=== PATIENT | male | born 1960 | race Caucasian/White ===

== ENCOUNTER → 2017-10-06 07:43 | Outpatient (CLI) | payer OTHER, SELFPAY ==
--- NOTE | 2017-10-06 07:47 | CT_ITS ---
STUDY: CT PARANASAL SINUSES WITH CONTRAST REASON FOR EXAM: Male, 57 years old. Benign right palatal cyst x years, biopsy in 2013. Prior repair of deviated septum. Chronic sinus congestion and allergies. RADIATION DOSAGE (If Supplied By Facility): CTDIvol = ( 29.38 ) mGy, DLP = ( 591.53 ) mGycm TECHNIQUE: The patient was scanned in a multi-detector CT scanner. High resolution transaxial imaging was performed following the intravenous administration of 100mL ml of Isovue 300 contrast material. Sagittal and coronal images were reconstructed. Individualized dose optimization techniques were used for this CT. COMPARISON: None. FINDINGS: FRONTAL SINUSES: Normal development and aeration of the bilateral frontal sinuses without mucosal inflammatory disease. ETHMOIDAL SINUSES: Normal development and aeration of the bilateral ethmoidal air cells without mucosal inflammatory disease. MAXILLARY SINUSES: Minimal mucosal thickening in the maxillary sinuses. SPHENOIDAL SINUSES: Normal aeration of the bilateral sphenoid sinuses and there is no mucosal inflammatory disease. OMU: Obstructed right maxillary ostium and right infundibulum due to mucosal thickening. Patent left ostiomeatal unit. MIDDLE TURBINATES: Nonopacified right conchal bullosa. Normal left middle turbinate. INFERIOR TURBINATES: Partial left turbinectomy defect. Normal right inferior turbinate. NASAL SEPTUM: Mild left nasal septal deviation despite prior history of septoplasty. Normal anterior cranial fossa, sun danny and cribriform plate. Normal bilateral orbital contents. Normal nasopharynx without adenoidal pad hypertrophy, or a posterior nasopharyngeal retention cyst. 1.7 x 1.4 x 1.2 cm soft tissue density hanging around the roof of the right side of the oral cavity. This is most likely the known benign right palatal cyst. CT/Sinus/Facial Bone WITH Contras IMPRESSION: 1. Minimal mucosal thickening in both maxillary sinuses. 2. The remaining paranasal sinuses are normal. 3. Obstructed right ostiomeatal unit due to mucosal thickening at the ostium and along the right infundibulum. 4. Patent left ostiomeatal unit. 5. Nonopacified right conchal bullosa. 6. Mild left-sided nasal septal deviation despite prior history of septoplasty. 7. 1.7 x 1.4 x 1.2 cm soft tissue density hanging down the right side of the roof of the oral cavity. This most likely corresponds to the known benign right palatal cyst. Interval changes are unknown since no prior films are available for comparison. Electronically Signed: Stoney Diggs MD at 10:56 EDT , Service support ,
== END ==
PROVIDERS: Family Provider Family Medicine; PCP Family Medicine
DX: K13.79 Other lesions of oral mucosa (principal)
CPT/HCPCS: 70487; Q9967

== ENCOUNTER → 2018-02-24 10:20 | Outpatient (CLI) | payer OTHER, SELFPAY ==
[2018-02-23 08:19] LABS: BUN 17 mg/dL (7-18); Creatinine, Serum 1.24 mg/dL (0.70-1.30); EST Glomerular Filtration Rate 64 mL/min (>60); Est Glom Filt Rate - Afr Amer 78 mL/min (>60)
[2018-02-25 08:12] LABS: CREATININE FINGERSTICK 0.65 mg/dL (0.70-1.30)
== END ==
PROVIDERS: Family Provider Family Medicine; PCP Family Medicine
DX: K13.79 Other lesions of oral mucosa (principal)
CPT/HCPCS: 36415; 70486; 70491; 76377; 82565; 84520; Q9967

== ENCOUNTER → 2018-12-10 09:52 | Outpatient (CLI) | payer OTHER, SELFPAY ==
[2017-04-05 16:54] VITALS: BMI 28.8
[2018-12-10 12:40] LABS: Absolute Lymphocyte Count 1.54 X10^3/ul (0.83-4.51); Basophil# 0.03 X10^3/uL; Basophil% 0.7 % (0-1); Eosinophil# 0.35 X10^3/uL; Hematocrit 39.4 % (40-54); Hemoglobin 13.5 g/dl (13.0-16.5); Lymphocyte # 1.54 X10^3/ul (4.0); Lymphocyte % 35.4 % (19-41); Mean Corp Hgb Conc 34.3 g/gl (32-36); Mean Corpuscular Hgb 29.7 pg (27.0-32.0); Mean Corpuscular Volume 86.6 fL (80-94); Mean Platelet Vol. 12.1 fl (6.2-12.0); Monocyte# 0.46 X10^3/uL; Monocyte% 10.6 % (0-10); Neutrophil # 1.97 X10^3/uL (2.7-7.7); Neutrophil % 45.3 % (47-70); Platelet Count 209 K/mm3 (150-450); RBC Distribution Width CV 13.9 % (11.6-14.6); Red Blood Count 4.55 M/mm3 (4.6-6.2); White Blood Count 4.4 K/mm3 (4.4-11.0)
[2018-12-10 12:41] LABS: POSITIVE COUNT NO; POSITIVE DIFFERENTIAL NO; POSITIVE MORPHOLOGY NO
[2018-12-10 13:47] LABS: ALB/GLOB Ratio 1.1 RATIO (0.9-2.4); AST(SGOT) 32 U/L (15-37); Alanine Aminotransfer ALT/SGPT 32 U/L (16-61); Albumin, Serum 3.7 g/dL (3.2-5.0); Alkaline Phosphatase 56 U/L (45-117); Anion Gap 8 (5-15); BUN 12 mg/dL (7-18); BUN/Creat Ratio 12.6 RATIO (10-20); Calcium,Total 8.5 mg/dL (8.5-10.1); Chloride 105 mmol/L (98-107); Cholesterol 181 mg/dL (200); Creatinine, Serum 0.96 mg/dL (0.70-1.30); EST Glomerular Filtration Rate 86 mL/min (>60); Est Glom Filt Rate - Afr Amer 105 mL/min (>60); Globulin 3.5 g/dL (2.2-4.2); Glucose 99 mg/dL (74-106); High Density Lipoprotein 60 mg/dL; PSA,Total - Annual Screen 0.94 ng/mL (0.00-4.00); Potassium 4.1 mmol/L (3.5-5.1); Protein, Total 7.2 g/dL (6.4-8.2); Sodium Level 138 mmol/L (136-145); Triglycerides 98 mg/dL; Very Low Density Lipoprotein 20 mg/dL (5-40)
== END ==
PROVIDERS: Family Provider Family Medicine; PCP Family Medicine; Visit Provider Family Medicine
DX: Z00.00 Encounter for general adult medical examination without abnormal findings (principal); Z12.5 Encounter for screening for malignant neoplasm of prostate
CPT/HCPCS: 36415; 80053; 80061; 84153; 85025; G0103

== ENCOUNTER → 2019-09-24 14:22 | Outpatient (CLI) | payer OTHER, SELFPAY ==
[2017-04-05 16:54] VITALS: BMI 28.8
[2019-09-24 16:19] LABS: Rubella IgG > 500.0 IU/mL
[2019-09-27 20:04] LABS: Mumps Antibody,IgG 35.8 AU/mL (Immune >10.9); Rubeola IgG Ab < 13.5 AU/mL (Immune >16.4)
== END ==
PROVIDERS: PCP Family Medicine; Visit Provider Family Medicine
DX: Z92.29 Personal history of other drug therapy (principal)
CPT/HCPCS: 36415; 86735; 86762; 86765

== ENCOUNTER → 2020-06-21 10:27 | Outpatient (CLI) | payer OTHER, SELFPAY ==
[2017-04-05 16:54] VITALS: BMI 28.8
== END ==
PROVIDERS: PCP Family Medicine; Visit Provider Family Medicine
DX: Z20.828 Contact with and (suspected) exposure to other viral communicable diseases (principal)
CPT/HCPCS: 36415; 86769

== ENCOUNTER → 2020-08-19 09:15 | Outpatient (CLI) | payer OTHER, SELFPAY ==
--- NOTE | 2020-08-19 09:23 | US_ITS ---
EXAM: US ABDOMEN LIMITED, RIGHT UPPER QUADRANT CLINICAL INDICATION: RUQ PAIN TECHNIQUE: Real-time ultrasound of the right upper quadrant with image documentation. This report was created using [employer] report generation technology. COMPARISON: None. FINDINGS: LIVER: Unremarkable. There is normal echotexture. No focal hepatic lesion. No intrahepatic biliary ductal dilation. GALLBLADDER: Small cholesterol polyp of the gallbladder measures 3 mm. No gallstones. No gallbladder wall thickening is demonstrated. No pericholecystic fluid. Negative sonographic Vincent''s sign. COMMON BILE DUCT: Unremarkable as visualized. The proximal common bile duct is within normal limits for the patient''s age. PANCREAS: Unremarkable as visualized. No focal abnormality is demonstrated in the pancreas. No pancreatic ductal dilatation. RIGHT KIDNEY: Unremarkable. There is no hydronephrosis. No shadowing calculus. No focal lesion or perinephric collection is demonstrated. US/Abdomen Limited IMPRESSION: No acute findings in the right upper quadrant. Electronically Signed: Abimael Lock MD ([place]) at 15:40 EST , Service support ,
== END ==
PROVIDERS: PCP Family Medicine; Referring Provider Family Medicine; Visit Provider Family Medicine
DX: R10.11 Right upper quadrant pain (principal)
CPT/HCPCS: 76705

== ENCOUNTER → 2022-02-06 | Outpatient (CLI) | payer BC, SELFPAY ==
[2022-02-06 09:58] LABS: Absolute Lymphocyte Count 0.89 X10^3/uL (0.83-4.51); Absolute Neutrophil Count 5.9 X10^3/uL (2.0-7.7); Basophil# 0.04 X10^3/uL; Basophil% 0.5 % (0-1); Eosinophil# 0.36 X10^3/uL; Eosinophils% 4.5 % (0-5); Hematocrit 39.3 % (40-54); Hemoglobin 13.5 g/dL (13.0-16.5); Lymphocyte # 0.89 X10^3/ul (0.83-4.51); Lymphocyte % 11.2 % (19-41); Mean Corp Hgb Conc 34.4 g/dL (32-36); Mean Corpuscular Hgb 30.5 pg (27.0-32.0); Mean Corpuscular Volume 88.7 fL (80-94); Mean Platelet Vol. 11.2 fl (6.2-12.0); Monocyte# 0.81 X10^3/uL; Monocyte% 10.2 % (0-10); NRBC Flagged by Analyzer 0 % (0-5); Neutrophil # 5.85 X10^3/uL (2.7-7.7); Neutrophil % 73.3 % (47-70); Platelet Count 197 K/mm3 (150-450); RBC Distribution Width CV 12.8 % (11.6-14.6); Red Blood Count 4.43 M/mm3 (4.6-6.2)
[2022-02-06 10:16] LABS: Vitamin D,25 Hydroxy 45.2 ng/mL
[2022-02-06 10:17] LABS: ALB/GLOB Ratio 1.2 RATIO (0.9-2.4); AST(SGOT) 28 U/L (15-37); Alanine Aminotransfer ALT/SGPT 25 U/L (16-61); Albumin, Serum 3.7 g/dL (3.2-5.0); Alkaline Phosphatase 52 U/L (45-117); Anion Gap 6 (5-15); BUN 8 mg/dL (7-18); BUN/Creat Ratio 8.7 RATIO (10-20); Calcium,Total 8.7 mg/dL (8.5-10.1); Chloride 102 mmol/L (98-107); Cholesterol 165 mg/dL (200); Creatinine, Serum 0.92 mg/dL (0.70-1.30); EST Glomerular Filtration Rate 90 mL/min (>60); Est Glom Filt Rate - Afr Amer 109 mL/min (>60); Globulin 3.2 g/dL (2.2-4.2); Glucose 100 mg/dL (74-106); High Density Lipoprotein 61 mg/dL; PSA,Total - Annual Screen 1.08 ng/mL (0.00-4.00); Potassium 3.9 mmol/L (3.5-5.1); Protein, Total 6.9 g/dL (6.4-8.2); Sodium Level 136 mmol/L (136-145); Triglycerides 61 mg/dL; Very Low Density Lipoprotein 12 mg/dL (5-40)
== END | disposition home or self-care (01) ==
LOC: MTLAB 07:31
PROVIDERS: PCP Family Medicine; Referring Provider Family Medicine; Visit Provider Family Medicine
DX: Z00.00 Encounter for general adult medical examination without abnormal findings (principal); Z12.5 Encounter for screening for malignant neoplasm of prostate; E55.9 Vitamin D deficiency, unspecified
CPT/HCPCS: 36415; 80053; 80061; 82306; 84153; 85025; G0103

== ENCOUNTER → 2022-07-02 | Outpatient (CLI) | payer BC, SELFPAY ==
--- NOTE | 2022-07-02 09:58 | NM_ITS ---
CLINICAL: 62-year-old male with history of right upper quadrant abdominal pain. RADIONUCLIDE HEPATOBILIARY SCINTIGRAPHY COMPARISON: None available FINDINGS: Following the intravenous administration of 5.2 mCi of 99m Tc Mebrofenin, hepatobiliary images reveal: 1. Relatively prompt and homogeneous radiopharmaceutical concentration is noted by a normal sized liver. No parenchymal defects are identified. 2. Gallbladder activity is identified at 10 minutes post radiopharmaceutical administration. 3. Small intestinal tract is observed at 30-45 minutes following tracer injection. 4. Washout of the radiopharmaceutical by the hepatic parenchyma appears qualitatively normal. Cholecystokinin (0.02 ug/kg) was administered intravenously over a 30-minute period. The post CCK gallbladder ejection fraction calculated at 21 minutes following Cholecystokinin administration was noted to be 97.0 % (normal greater than 35%). During 30 minutes of post CCK imaging, there is no scintigraphic evidence of reflux of the radiotracer into the common hepatic duct or refilling of the gallbladder. NM/Hepatobilliary Img w/Pharm Int IMPRESSION: 1. NORMAL 99m Tc Mebrofenin hepatobiliary imaging examination with Cholecystokinin. A. A gallbladder ejection fraction calculated to be greater than 35% following the administration of Cholecystokinin makes the probability of functional hepatobiliary disease (gallbladder and/or sphincter of Oddi dyskinesia) and/or organic hepatobiliary disease (chronic acalculous cholecystitis and/or cystic duct syndrome) to be low. (Paco Kauffman et al, Journal of Nuclear Medicine 32:1695, 1991). Electronically Signed: Chemo Harrison, at 23:34 EST ,
== END | disposition home or self-care (01) ==
LOC: NM 09:52
PROVIDERS: PCP Family Medicine; Visit Provider Family Medicine
DX: R10.11 Right upper quadrant pain (principal)
CPT/HCPCS: 78227; A9537; J2805

== ENCOUNTER 2022-09-01 06:19 | Emergency (ER) | payer BC, SELFPAY ==
[2022-09-01 06:19] VITALS: BP 109/71; PULSE 77; RESP 17; TEMP 36.8; O2SAT 94; BMI 26.1
--- NOTE | 2022-09-01 06:29 | CT_ITS ---
EXAM: CT HEAD WITHOUT INTRAVENOUS CONTRAST CLINICAL INDICATION: syncope, fall TECHNIQUE: Multiple axial images were obtained of the head without intravenous contrast. This CT exam was performed using one or more of the following dose reduction techniques: automated exposure control, adjustment of the mA and/or kV according to patient size, and/or use of iterative reconstruction technique. This report was created using [employer] report generation technology. RADIATION DOSE: CTDIvol = 44.99 mGy, DLP = 914.22 mGy-cm. COMPARISON: Soft tissue neck CT February 24, 2018. There has been postoperative change since that time. FINDINGS: BRAIN AND EXTRA-AXIAL SPACES: Unremarkable. No intra- or extra-axial hemorrhage. No evidence of acute infarct. No intracranial mass or mass effect. There is preservation of the reveles/white matter interface. Posterior fossa structures are unremarkable. Ventricles are appropriate for age. No hydrocephalus. Basal cisterns are patent. BONES/JOINTS: See below. SINUSES: The central and right heart palate have been resected with a residual bone at the right alveolar ridge, and resection of a segment of the inferior wall of the right maxillary sinus of roughly 1.5 cm transverse. Mucosal retention cyst in the left maxillary sinus. Mild mucosal thickening in frontoethmoidal recesses. Angulated nasal bones with old fractures. MASTOID AIR CELLS: Unremarkable. Clear. AUDITORY SYSTEM: Well-aerated middle ears and mastoids sinuses. ORBITS: Visualized globes, extraocular muscles, optic nerves and retrobulbar fat appear unremarkable. CT/Brain/Head without Contrast IMPRESSION: No acute intracranial abnormality. Postoperative changes of the right face. Electronically Signed: Chelsea Goldberg MD at 7:36 EST ,
--- NOTE | 2022-09-01 06:30 | EKG12_ITS ---
Test Reason : SYNCOPE Blood Pressure : / mmHG Vent. Rate : 077 BPM Atrial Rate : 077 BPM P-R Int : 164 ms QRS Dur : 078 ms QT Int : 358 ms P-R-T Axes : 050 056 055 degrees QTc Int : 405 ms Normal sinus rhythm Septal infarct , age undetermined Abnormal ECG Confirmed by DONOVAN MCBRIDE, SANA ([id number]), deputy editor in chief PAUL KEITH ([id number]) on 09/02/2022 1:34:46 PM Referred By: MELVIN Confirmed By:SANA MAN MD
--- NOTE | 2022-09-01 06:33 | EX.ED.DYSGE1 ---
HPI History of Present Illness Chief Complaint: Syncope Informant: patient and spouse/S.O. Onset/Context/Timing Onset: Today Narrative Narrative: Patient presents with for evaluation of syncope. Patient reportedly got up to go to the restroom. He went to urinate. He states he remembers feeling lightheaded and leaning his head against the wall. He reportedly passed out and fell to the ground. states that he had a blank stare on his face. He came around quickly and tried to sit up but was dizzy and had to lie back down. He denies having chest pain or palpitations. states that he did not have a bowel movement yesterday which is abnormal for him, but he did eat and drink normally. He has not recently been sick. He has been on no new medications. [facility] Medical History Asthma HERBIE (obstructive sleep apnea) Home Medications fexofenadine-pseudoephedrine ER 180 mg-240 mg tablet,ext.release 24 hr (Angeles-D 24 Hour) 1 ea PO DAILY 10/21/16 [History Last Taken Unknown] albuterol sulfate 2.5 mg/3 mL (0.083 %) solution for nebulization 2.5 mg (3 mL) inhalation Q2H PRN PRN Dyspnea, wheezing ##1 04/06/17 [Rx Last Taken Unknown] albuterol sulfate 90 mcg/actuation aerosol inhaler (Ventolin HFA) 1 - 2 puff inhalation Q4H PRN PRN Asthma ##1 04/06/17 [Rx Last Taken Unknown] fluticasone propionate 50 mcg/actuation nasal spray,suspension 1 spray BID ##1 04/06/17 [Rx Last Taken Unknown] ipratropium bromide 17 mcg/actuation HFA aerosol inhaler (Atrovent HFA) 1 puff inhalation 4X/DAY ##1 04/06/17 [Rx Last Taken Unknown] montelukast 10 mg tablet 10 mg PO DAILY@1700 #30 tabs 04/06/17 [Rx Last Taken Unknown] nebulizers (LC Plus misc) ##1 04/06/17 [Rx Last Taken Unknown] Allergy/AdvReac Type Severity Reaction Status Date / Time cat dander Allergy Unknown Verified 09/01/22 06:24 pollen extracts Allergy Unknown Verified 09/01/22 06:24 Social History Smoking Status: Never smoker ROS ROS ED Constitutional Constitutional ED: Denies chills or fever(s) Eyes Eyes: Denies change in vision or discharge from eye(s) ENT ENT ED: Denies discharge from eye(s), rhinorrhea or sore throat Cardiovascular Cardiovascular: Denies chest pain or palpitations Respiratory/Chest Respiratory/Chest: Denies cough or dyspnea Gastrointestinal Gastrointestinal: Denies abdominal pain, diarrhea, nausea or vomiting Genitourinary Genitourinary ED: Denies dysuria Musculoskeletal Musculoskeletal: Denies back pain or extremity pain Integumentary Denies Abrasions or rash Neurologic Neurologic: Denies headache(s) or weakness Psychiatric Psychiatric: Denies anxiety or depression Endocrine Endocrinology: Denies polydipsia or polyuria Allergic/Immunologic Allergic/Immunologic ED: Denies lip swelling or urticaria EXAM Physical Exam Const Vital Signs: 09/01/22 06:19 09/01/22 06:22 09/01/22 07:33 Temperature 98.3 F Temperature Source Oral Pulse Rate 77 75 Respiratory Rate 17 16 Respiratory Pattern Normal Blood Pressure 109/71 110/70 Blood Pressure Mean 83 83 Pulse Ox 94 96 Oxygen Delivery Method Room Air Room Air Positive well nourished and well developed General Appearance ED: well developed HEENT Reports normocephalic and head/scalp atraumatic Eyes PERRL and EOMs intact bilaterally Neck supple Chest Wall inspection of chest normal and palpation of chest normal Resp normal respiratory effort and clear to auscultation bilaterally Cardio regular rate and regular rhythm GI non-tender Auscultation: hypoactive bowel sounds Palpation: soft Extremity normal to inspection Neuro oriented x3 Neuro Narrative: Lives in bed with eyes closed but answers questions appropriately. No focal neuro findings. 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 EKG obtained to evaluate for cardiac arrhythmia/ischemia. Lab work obtained to evaluate for leukocytosis, anemia, electrolyte derangement. Blood glucose on arrival is 138. Portable chest x-ray obtained to evaluate for cardiac size and any acute lung pathology. Head CT obtained given the patient's fall and syncopal episode. Lab Data Attestation: I reviewed the patient's lab results. Labs: Laboratory Results - last 24 hr 09/01/22 09/01/22 09/01/22 06:22 06:22 06:53 WBC 6.5 RBC 4.70 Hgb 14.2 Hct 41.4 MCV 88.1 MCH 30.2 MCHC 34.3 RDW Std Deviation 39.1 RDW Coeff of Dinora 12.1 Plt Count 193 MPV 10.9 Immature Gran % (Auto) 0.200 Neut % (Auto) 86.6 H Lymph % (Auto) 6.6 L [place] % (Auto) 5.7 Eos % (Auto) 0.6 Baso % (Auto) 0.3 Absolute Neuts (auto) 5.6 Absolute Lymphs (auto) 0.43 L Nucleated RBC % 0 Differential Comment SCANNED Sodium 136 Potassium 3.7 Chloride 102 Carbon Dioxide 28.0 Anion Gap 6 BUN 14 Creatinine 1.03 Estim Creat Clear Calc 88.67 Est GFR (MDRD) Af Amer 95 Est GFR (MDRD) Non-Af 78 BUN/Creatinine Ratio 13.6 Glucose 146 H Calcium 8.5 Total Bilirubin 0.70 Direct Bilirubin 0.19 AST 27 ALT 25 Alkaline Phosphatase 50 Troponin I High Sens 5 Total Protein 6.7 Albumin 3.5 Globulin 3.2 POC Glucose 138 H Radiography Chest X-Ray - ED: 1 View, Read by ED Physician, Normal, Heart, Lungs and Mediastinum Diagnostic Testing: Clinical Impression(s) from Imaging Studies Brain CT 09/01/22 06:29 IMPRESSION: No acute intracranial abnormality. Postoperative changes of the right face. Electronically Signed: Chelsea Goldberg MD at 7:36 EST , Chest X-Ray 09/01/22 07:10 IMPRESSION: Stable chest. Mild right basilar scarring. Electronically Signed: Chelsea Goldberg MD at 7:41 EST , EKG Initial EKG: Attestation: I personally reviewed and interpreted this EKG as follows: Interpretation: Sinus Rhythm (Sinus at 77 with no acute ischemia.) Treatment and Re-Evaluation Narrative: CBC and chemistry studies unremarkable. LFTs unremarkable. EKG reveals no acute ischemia. He has had no arrhythmias noted on tobacco acreage measurer. Chest x-ray per my interpretation reveals no acute findings. Radiology interpretation is reviewed and agrees. CT scan of the head reveals no acute abnormality. On repeat evaluation patient is resting comfortably. He is tolerating p.o. fluids. He will have a repeat troponin drawn in approximately 40 minutes. This be signed out to oncoming physician. If normal patient can be discharged to home. He began feeling lightheaded and dizzy with urination. I believe he had a vasovagal episode. He has had no chest pain or palpitations. Discharge Plan Triage Chief Complaint: Syncope ED Provider: Bernice Hurtado Dx/Rx/DC Orders Clinical Impression: Syncope, vasovagal Instructions: ED Fainting, Vagal Reaction Prescriptions: No Action fexofenadine-pseudoephedrine [Angeles-D 24 Hour] 1 EACH tablet extended release 24 hr 1 ea PO DAILY Label Comments: seasonal allergies montelukast 10 MG tablet 10 mg PO DAILY@1700 Qty: 30 0RF fluticasone propionate 1 SPRAY spray,suspension 1 spray NASAL BID Qty: 1 0RF albuterol sulfate 2.5 MG/3 ML solution for nebulization 2.5 mg inhalation Q2H PRN PRN (Reason: Dyspnea, wheezing) Qty: 1 0RF Atrovent HFA 12.9 GM inhaler 1 puff inhalation 4X/DAY Qty: 1 0RF albuterol sulfate [Ventolin HFA] 1 INHALER inhaler 1 - 2 puff inhalation Q4H PRN PRN (Reason: Asthma) Qty: 1 0RF (DME) nebulizers [LC Plus] 1 EACH Each 1 ea miscellaneous UD Qty: 1 0RF Rx Instructions: Nebulizer machine and kit x 1 Re: Asthma exacerbation Use as directed per aerosols rx. Primary Care Provider: Jelani Lucero Referrals: Jelani Lucero DO [Primary Care Provider] - 5-7 Days Disposition Disposition: Home, Self Care
[2022-09-01 06:39] LABS: Absolute Lymphocyte Count 0.43 X10^3/uL (0.83-4.51); Absolute Neutrophil Count 5.6 X10^3/uL (2.0-7.7); Basophil# 0.02 X10^3/uL; Basophil% 0.3 % (0-1); Eosinophil# 0.04 X10^3/uL; Eosinophils% 0.6 % (0-5); Hematocrit 41.4 % (40-54); Hemoglobin 14.2 g/dL (13.0-16.5); Lymphocyte # 0.43 X10^3/ul (0.83-4.51); Lymphocyte % 6.6 % (19-41); Mean Corp Hgb Conc 34.3 g/dL (32-36); Mean Corpuscular Hgb 30.2 pg (27.0-32.0); Mean Corpuscular Volume 88.1 fL (80-94); Mean Platelet Vol. 10.9 fl (6.2-12.0); Monocyte# 0.37 X10^3/uL; Monocyte% 5.7 % (0-10); NRBC Flagged by Analyzer 0 % (0-5); Neutrophil # 5.62 X10^3/uL (2.7-7.7); Neutrophil % 86.6 % (47-70); POSITIVE DIFFERENTIAL YES; Platelet Count 193 K/mm3 (150-450); RBC Distribution Width CV 12.1 % (11.6-14.6); RBC Distribution Width SD 39.1 fl (35.1-43.9); White Blood Count 6.5 K/mm3 (4.4-11.0)
[2022-09-01 06:43] LABS: Differential Indicated SCAN CRITERIA MET
[2022-09-01] MEDS: 0.9% Normal Saline 1,000 ML 1000 ML IV (06:43)
[2022-09-01 06:56] LABS: AST(SGOT) 27 U/L (15-37); Alanine Aminotransfer ALT/SGPT 25 U/L (16-61); Albumin, Serum 3.5 g/dL (3.2-5.0); Alkaline Phosphatase 50 U/L (45-117); Anion Gap 6 (5-15); BUN 14 mg/dL (7-18); BUN/Creat Ratio 13.6 RATIO (10-20); Bilirubin, Direct 0.19 mg/dL (0.00-0.30); Calcium,Total 8.5 mg/dL (8.5-10.1); Chloride 102 mmol/L (98-107); Creatinine, Serum 1.03 mg/dL (0.70-1.30); EST Glomerular Filtration Rate 78 mL/min (>60); Est Glom Filt Rate - Afr Amer 95 mL/min (>60); Estimated Creatinine Clearance 88.67 ml/min; Globulin 3.2 g/dL (2.2-4.2); Glucose 146 mg/dL (74-106); Potassium 3.7 mmol/L (3.5-5.1); Protein, Total 6.7 g/dL (6.4-8.2); Sodium Level 136 mmol/L (136-145); Troponin-I HS (w/2H Reflex) 5 pg/mL (3.0-78.0)
[2022-09-01 07:04] LABS: Differential Comment SCANNED
--- NOTE | 2022-09-01 07:10 | RAD_ITS ---
EXAM: XR CHEST, 1 VIEW CLINICAL INDICATION: syncope TECHNIQUE: Frontal view of the chest. This report was created using [employer] report generation technology. COMPARISON: April 05, 2017. FINDINGS: LUNGS AND PLEURAL SPACES: Mild linear presumed scarring in the right lung base again noted. Mildly increased lucency in the suprahilar regions which is 4 COPD. No convincing infiltrates or effusions. No pneumothorax. HEART: Unremarkable. Cardiac silhouette not enlarged. MEDIASTINUM: No mediastinal widening. BONES/JOINTS: Unremarkable. SOFT TISSUES: Unremarkable. RAD/Chest 1 View (Portable) IMPRESSION: Stable chest. Mild right basilar scarring. Electronically Signed: Chelsea Goldberg MD at 7:41 EST ,
[2022-09-01 07:15] LABS: Bedside Glucose 138 mg/dL (74-106)
[2022-09-01 07:33] VITALS: BP 110/70; PULSE 75; RESP 16; O2SAT 96
[2022-09-01 08:00] VITALS: BP 106/64; PULSE 74; RESP 21; O2SAT 96
[2022-09-01 08:36] LABS: Reflex Troponin-HS? (from REC) Y
[2022-09-01 09:34] LABS: Troponin-I HS 5 pg/mL (3.0-78.0)
[2022-09-01 10:03] VITALS: BP 111/62; PULSE 74
== END 2022-09-01 10:18 | disposition home or self-care (01) ==
PROVIDERS: Emergency Provider Emergency Medicine; PCP Family Medicine; Visit Provider Emergency Medicine
DX: R55 Syncope and collapse (principal); J45.909 Unspecified asthma, uncomplicated; G47.33 Obstructive sleep apnea (adult) (pediatric)
CPT/HCPCS: 70450; 71045; 80048; 80076; 82962; 84484; 85025; 93005; 96360; 99284

== ENCOUNTER → 2023-02-07 | Outpatient (CLI) | payer BC, SELFPAY ==
[2023-02-07 12:55] LABS: Cholesterol 174 mg/dL (200); High Density Lipoprotein 62 mg/dL; PSA,Total - Annual Screen 0.89 ng/mL (0.00-4.00); Triglycerides 107 mg/dL; Very Low Density Lipoprotein 21 mg/dL (5-40)
== END | disposition home or self-care (01) ==
PROVIDERS: PCP Family Medicine; Referring Provider Family Medicine; Visit Provider Family Medicine
DX: Z00.00 Encounter for general adult medical examination without abnormal findings (principal); Z12.5 Encounter for screening for malignant neoplasm of prostate
CPT/HCPCS: 36415; 80061; 84153; G0103

== ENCOUNTER → 2023-04-14 | Outpatient (CLI) | payer BC, SELFPAY ==
--- NOTE | 2023-04-14 10:55 | RAD_ITS ---
STUDY: X-RAY - RIGHT ANKLE REASON FOR EXAM: Male, 62 years old. Trauma. Pain. TECHNIQUE: 3 view(s) of the ankle. COMPARISON: None. FINDINGS: Osteopenia. Normal visualized distal tibia and fibula. Normal medial and lateral malleoli. Normal tibiotalar articulation and ankle mortise. Normal visualized talus and calcaneus. The visualized subtalar, talonavicular, calcaneocuboid and tarsal articulations are normal. Mild diffuse soft tissue swelling. RAD/Ankle min 3 Views IMPRESSION: Osteopenia with soft tissue swelling and no acute osseous abnormality. Electronically Signed: Orville Mitchell MD at 9:37 EDT ,
== END | disposition home or self-care (01) ==
LOC: MTRAD 10:53
PROVIDERS: PCP Family Medicine; Referring Provider Family Medicine; Visit Provider Family Medicine
DX: M25.571 Pain in right ankle and joints of right foot (principal)
CPT/HCPCS: 73610

== ENCOUNTER 2023-07-22 20:21 | Emergency (ER) | payer BC, SELFPAY ==
[2023-07-22 20:21] VITALS: BP 175/108; PULSE 79; RESP 19; TEMP 36.7; O2SAT 97; BMI 23.7
--- NOTE | 2023-07-22 20:41 | RAD_ITS ---
EXAM: XR CHEST, 2 VIEWS CLINICAL INDICATION: SOB TECHNIQUE: Frontal and lateral views of the chest. COMPARISON: 09/01/2022 FINDINGS: LUNGS AND PLEURAL SPACES: Hyperinflated lungs without focal airspace disease perhaps indicative of COPD. No pneumothorax. No effusion. HEART: No significant abnormality. Cardiac silhouette not enlarged. MEDIASTINUM: Central airways and mediastinal contour are unremarkable. BONES/JOINTS: Degenerative changes in the spine and shoulders. No acute fracture. SOFT TISSUES: No significant abnormality. RAD/Chest PA and Lateral IMPRESSION: Hyperinflated lungs without focal airspace disease perhaps indicative of COPD. Electronically Signed: Matt Park DO at 21:19 EST ,
--- NOTE | 2023-07-22 22:29 | EDS_ITS ---
HPI HPI - URI History of Present Illness Chief Complaint: Shortness of Breath Informant: patient and spouse/S.O. Onset/Context/Timing Onset: Days (8 (URI sx)) Context: Gradual Onset Timing: Continuous Narrative Narrative: Patient has had runny nose, congestion, cough, he developed sinus pressure and congestion and swelling in his face in these areas according to his , saw his PCP this was within a couple days of the onset of the illness, he was placed on Augmentin which she is almost finished with, and then he started having increased asthma symptoms as he was having postnasal drip and lots of coughing. States usually when he goes on prednisone he takes care of his asthma pretty well. He states he has been on prednisone 40 mg/day for 4 days he has 1 more day left tomorrow, and he is still using MDI and albuterol aerosols intermittently because he has been having exertional dyspnea, feeling out of breath easily. Denies any fevers or chills. Denies any pains in his chest such as pressure or heaviness. No edema in his legs or orthopnea specifically. He states his sinus symptoms are better now. ROS ROS ED Constitutional Constitutional ED: Denies chills or fever(s) ENT ENT ED: Reports as per HPI, nasal congestion, rhinorrhea, sinus pain, sinus pressure and other Details: Dysphonia/hoarseness ; Denies ear discharge, ear pain or sore throat Cardiovascular Cardiovascular: Denies chest pain or palpitations Respiratory/Chest Respiratory/Chest: Reports cough and dyspnea Gastrointestinal Gastrointestinal: Denies abdominal pain, diarrhea, nausea or vomiting Genitourinary Genitourinary ED: Denies dysuria or hematuria Musculoskeletal Musculoskeletal: Denies myalgias or neck pain Integumentary Denies abscess or rash Neurologic Neurologic: Denies headache(s), paresthesias or weakness Psychiatric Psychiatric: Denies depression or suicidal thoughts Endocrine Endocrinology: Denies polydipsia or polyuria [facility] Medical History Asthma HERBIE (obstructive sleep apnea) Home Medications fexofenadine-pseudoephedrine ER 180 mg-240 mg tablet,ext.release 24 hr (Angeles- D 24 Hour) 1 ea PO DAILY 10/21/16 [History Last Taken Unknown] albuterol sulfate 2.5 mg/3 mL (0.083 %) solution for nebulization 2.5 mg (3 mL) inhalation Q2H PRN PRN Dyspnea, wheezing ##1 04/06/17 [Rx Last Taken Unknown] albuterol sulfate 90 mcg/actuation aerosol inhaler (Ventolin HFA) 1 - 2 puff inhalation Q4H PRN PRN Asthma ##1 04/06/17 [Rx Last Taken Unknown] fluticasone propionate 50 mcg/actuation nasal spray,suspension 1 spray BID ##1 04/06/17 [Rx Last Taken Unknown] ipratropium bromide 17 mcg/actuation HFA aerosol inhaler (Atrovent HFA) 1 puff inhalation 4X/DAY ##1 04/06/17 [Rx Last Taken Unknown] montelukast 10 mg tablet 10 mg PO DAILY@1700 #30 tabs 04/06/17 [Rx Last Taken Unknown] nebulizers (LC Plus misc) #1 ea 04/06/17 [Rx Last Taken Unknown] Allergy/AdvReac Type Severity Reaction Status Date / Time cat dander Allergy Unknown Verified 07/22/23 20:24 pollen extracts Allergy Unknown Verified 07/22/23 20:24 Social History Smoking Status: Never smoker EXAM Physical Exam Const Vital Signs: 07/22/23 20:21 Temperature 98.1 F Temperature Source Temporal Pulse Rate 79 Respiratory Rate 19 H Blood Pressure 175/108 H Blood Pressure Mean 130 Pulse Ox 97 Oxygen Delivery Method Room Air Positive well nourished and well developed General Appearance ED: well developed and NAD HEENT Reports moist mucous membranes normocephalic and atraumatic Throat: Negative for posterior oropharynx abnormal Eyes PERRL and EOMs intact bilaterally Neck no lymphadenopathy, supple and no meningeal signs Resp normal respiratory effort Resp Narrative: Conversive in full sentences without distress. Minor wheezes at the beginning of inspiration at end of expiration bilaterally. No rales or rhonchi. Otherwise clear. Cardio no murmurs Rate: regular rate; Negative for tachycardic Rhythm: regular rhythm Extremity no pedal edema Neuro oriented x3, CN's II-XII intact bilaterally and no sensory deficits noted Sensorium / Orientation: alert Motor Exam: strength 5/5 throughout Skin Lesions: no lesions Rashes: no rashes MDM MDM MDM Narrative Medical decision making narrative: Given that the patient is not curative with the antibiotics my suspicion is that all of this is viral which we discussed. Using Afrin could help with sinus symptoms if he continues to have any which we discussed. His pressure is a little high but has been taking decongestants and that is probably why this should be rechecked when he is feeling better. He is hoarse without stridor, this is all consistent with viral etiology as well. We did a two-view chest x- ray on my interpretation it is negative for acute pneumonia, radiology was in agreement. This is consistent with his vital signs and pulse oximetry and my exam. I think this is all asthma. I think given him an injection of Kenalog and having continuous prednisone as prescribed until it is complete may help more, he understands he may still need to use his MDI and aerosol machine until the illness is resolved. He states he is flying to [place] this coming weekend and I see no reason he cannot do that as long as he is not getting worse with regards to his breathing. Radiography Diagnostic Testing: Clinical Impression(s) from Imaging Studies Chest X-Ray 07/22/23 20:41 IMPRESSION: Hyperinflated lungs without focal airspace disease perhaps indicative of COPD. Electronically Signed: Matt Park, DO at 21:19 EST , Discharge Plan Triage Chief Complaint: Shortness of Breath ED Provider: Sushil Perea Dx/Rx/DC Orders Clinical Impression: Acute asthma exacerbation, Viral URI Instructions: Kenalog Injectable Suspension 40 mg/mL, ED Asthma, Acute (Adult) Prescriptions: No Action fexofenadine-pseudoephedrine [Angeles-D 24 Hour] 1 EACH tablet extended release 24 hr 1 ea PO DAILY Patient Comments: seasonal allergies montelukast 10 MG tablet 10 mg PO DAILY@1700 Qty: 30 0RF fluticasone propionate 1 SPRAY spray,suspension 1 spray NASAL BID Qty: 1 0RF albuterol sulfate 2.5 MG/3 ML solution for nebulization 2.5 mg inhalation Q2H PRN PRN (Reason: Dyspnea, wheezing) Qty: 1 0RF Atrovent HFA 12.9 GM inhaler 1 puff inhalation 4X/DAY Qty: 1 0RF albuterol sulfate [Ventolin HFA] 1 INHALER inhaler 1 - 2 puff inhalation Q4H PRN PRN (Reason: Asthma) Qty: 1 0RF (DME) nebulizers [LC Plus] 1 EACH misc 1 ea miscellaneous UD Qty: 1 0RF Rx Instructions: Nebulizer machine and kit x 1 Re: Asthma exacerbation Use as directed per aerosols rx. Primary Care Provider: Jelani Lucero Referrals: Jelani Lucero, DO [Primary Care Provider] - 1 Week if not improving Activity Restrictions/Additional Instructions: This will hopefully help your asthma more but be aware you may still need to use your rescue medication at times until the illness resolves. Your blood pressure is elevated, more likely due to decongestants you may be taking. Have your blood pressure rechecked when you are no longer needing to take decongestants. Disposition Disposition: Home, Self Care
--- OUTSIDE RECORDS SUMMARY | 2023-07-22 22:38 | XMS RPT_ITS | CCD ---
Author Name Unknown Address [address] [place] [address] Organization [facility] Care Team Providers Care Regional Sales Engineer Name Role Phone Erick Lester Unavailable Unavailable Jelani Lucero Unavailable Unavailable Matt Coombs Unavailable UnavailJelani Yates Unavailable Unavailable Unavailable PROVIDER, UNKNOWN Attending Unavailable PROVIDER, UNKNOWN Admitting Unavailable PATIENT, SELF Referring Unavailable Unavailable Primary Care Provider Unavailbaldev e Unavailable Unavailable Unavailable Primary Care Provider Unavailbaldev Lester, Dr. Erick Fenrandez Attending Mehnaz vailable Nic, Dr. Jelani Angulo Primary Care Unavaila ble Reaurora, Dr. Erick Fernandez Referring Mehnaz vailable Trevon, Dr. Erick Fernandez Referring Mehnaz vailable Millizariver, Dr. Erick Fernandez Attending Mehnaz vailable Nic, Dr. Jelani Angulo Primary Care Unavaila ble Trevon, Dr. Erick Fernandez Attending Mehnaz vailable Nic, Dr. Jelani Angulo Referring Unavaila ble Nic, Dr. Jelani Angulo Primary Care Unavaila ble Allergies Allergy Classification Reported Allergen(s) Allergy Type Date of Onset Reaction(s) Facility (2 sources) SEASONAL IC; Translations: [SEASONAL IC] Propensity to adverse reactions to drug (disorder) 8 [facility] Rep[facility] (1 source) Cat Allergy to substance 5 Other: See Comments [facility] (1 source) Seasonal allergy Allergy to substance 5 Other: See Comments [facility] Medications Current Medications Medication Drug Class(es) Dates Sig (Normalized) Sig (Original) [id number] 200 actuat albuterol 0.09 mg/actuat metered dose inhaler (13 sources) beta2-Adrenergic Agonist Start: 10-07-2017 VENTOLIN HFA HFA inhaler (VENTOLIN,PROAIR,P ROVENTIL) 90mcg Completed/Discontinued Medications Medication Drug Class(es) Dates Sig (Normalized) Sig (Original) bisacodyl 5 mg delayed release oral tablet (1 source) Stimulant Laxative Start: 01-21-2022 Bisacodyl (DULCOLAX) 5 mg tab Use as directed for Miralax / Gatorade Bowel Prep Kit 4 tablet 0 01/21/2022 Active Problems Active Problems Problem Classification Problem Date Documented Da te Episodic/Chronic Anal and rectal conditions (1 source) Rectal polyp; Translations: [Rectal polyp] Episodic Asthma (2 sources) Asthma; Translations: [Unspecified asthma, uncomplicated] Onset: 08-22-2014 08-22-2014 Chronic Cancer of head and neck (18 sources) Palate carcinoma; 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 Gastrointestinal hemorrhage (1 source) Rectal hemorrhage; Translations: [Hemorrhage of anus and rectum] Episodic Other lower respiratory disease (9 sources) H/O: asthma; Translations: [Personal history of other diseases of respiratory system] Episodic Other lower respiratory disease (9 sources) H/O: respiratory disease; Translations: [Personal history of other specified diseases] Episodic Other upper respiratory disease (2 sources) Allergic rhinitis; Translations: [Allergic rhinitis, unspecified] Onset: 08-22-2014 07-09-2021 Chronic Other upper respiratory disease (10 sources) Oropharyngeal lesion; Translations: [Other and unspecified diseases of the oral soft tissues] Onset: 11-21-2017 11-21-2017 Episodic Other upper respiratory disease (9 sources) Bleeding from nose; Translations: [Epistaxis] Episodic Other upper respiratory disease (8 sources) Nasal congestion; Translations: [Other disease of nasal cavity and sinuses] Episodic Past or Other Problems Problem Classification Problem Date Documented Da te Episodic/Chronic Other lower respiratory disease (2 sources) Snoring; Translations: [Snoring] Onset: 11-03-2015 11-03-2015 Episodic NEGATED: Highlighted row has not occurred!Residual codes; unclassified (19 sources) Disease Episodic Results Test Name Value Interpretation Reference Range Facil ity Vital Signs Date Time Vital Sign Value Performing Clinician Faci lity 03-07-2023 11:02-0400 Body height 187.96 cm Jelani Gerberutzman Work Phone: [facility] Work Phone: 03-07-2023 11:02-0400 Body mass index (BMI) [Ratio] 24.41 kg/m2 Jelani Gerberutzman Work Phone: [facility] [address] Work Phone: 03-07-2023 11:02-0400 Body surface area Derived from formula 2.13 m2 Jelani Frey [facility] Work Phone: [facility] 4[facility] Work Phone: 03-07-2023 11:02-0400 Body temperature 96.8 [degF] Jelani Gerberutzman Work Phone: [facility] Work Phone: 03-07-2023 11:02-0400 Body weight 86.23 kg Jelani Gerberutzman Work Phone: [facility] 4100 Work Phone: 08-23-2022 14:54-0500 Body height 187.96 cm Jelani Gerberutzman Work Phone: [facility] 4[address] Work Phone: 08-23-2022 14:54-0500 Body mass index (BMI) [Ratio] 25.83 kg/m2 Jelani Gerberutzman Work Phone: [facility] 4100 Work Phone: 08-23-2022 14:54-0500 Body surface area Derived from formula 2.18 m2 Jelani Gerberutzman Work Phone: [facility] Work Phone: 08-23-2022 14:54-0500 Body temperature 98.6 [degF] Jelani Lucero Work Phone: [facility] Work Phone: 08-23-2022 14:54-0500 Body weight 91.26 kg Jelani Lucero Work Phone: [facility] Work Phone: 05-10-2022 12:20-0400 Body height 187.96 cm Jelani Lucero Work Phone: [facility] Work Phone: 05-10-2022 12:20-0400 Body mass index (BMI) [Ratio] 26.17 kg/m2 Jelani Gerberutzman Work Phone: [facility] Work Phone: 05-10-2022 12:20-0400 Body surface area Derived from formula 2.19 m2 Jelani Lucero Work Phone: [facility] Work Phone: 05-10-2022 12:20-0400 Body weight 92.44 kg Jelani Lucero Work Phone: [facility] Work Phone: 02-21-2022 12:52-0400 Diastolic blood pressure 84 mm[Hg] Julio Ventura MD Work Phone: [facility] 02-21-2022 12:52-0400 Heart rate 63 /min Julio Ventura MD Work Phone: [facility] 02-21-2022 12:52-0400 Respiratory rate 16 /min Julio Ventura MD Work Phone: [facility] 02-21-2022 12:52-0400 SaO2% (BldA) [Mass fraction] 99 % Julio Ventura MD Work Phone: [facility] 02-21-2022 12:52-0400 Systolic blood pressure 149 mm[Hg] Julio Ventura MD Work Phone: [facility] 02-21-2022 11:30-0400 Body temperature 97.2 [degF] Julio Ventura MD Work Phone: [facility] 11-02-2021 12:17-0400 Body height 187.96 cm Jelani Frey [facility] Work Phone: [facility] [address] Work Phone: 11-02-2021 12:17-0400 Body mass index (BMI) [Ratio] 26.56 kg/m2 Jelani Frey [facility] Work Phone: [facility] [address] Work Phone: 11-02-2021 12:17-0400 Body surface area Derived from formula 2.2 m2 Jelani Frey [facility] Work Phone: [facility] 4[facility] Work Phone: 11-02-2021 12:17-0400 Body temperature 97.3 [degF] Jelani Frey [facility] Work Phone: [facility] 4[address] Work Phone: 11-02-2021 12:17-0400 Body weight 93.85 kg Jelani Frey [facility] Work Phone: [facility] 4[facility] Work Phone: 04-27-2021 10:52-0400 Body height 187.96 cm Jelani Frey [facility] Work Phone: [facility] Work Phone: 04-27-2021 10:52-0400 Body mass index (BMI) [Ratio] 26.75 kg/m2 Jelani Frey [facility] Work Phone: [facility] [address] Work Phone: 04-27-2021 10:52-0400 Body surface area Derived from formula 2.21 m2 Jelani Frey [facility] Work Phone: [facility] [address] Work Phone: 04-27-2021 10:52-0400 Body temperature 97.6 [degF] Jelani Frey [facility] Work Phone: [facility] 4107 Work Phone: 04-27-2021 10:52-0400 Body weight 94.51 kg Jelani Frey [facility] Work Phone: [facility] [address] Work Phone: 04-27-2021 10:52-0400 Respiratory rate 18 /min Jelani Gerberutzman Work Phone: [facility] 4[facility] Work Phone: 12-29-2020 10:57-0400 Body height 187.96 cm Jelani Frey [facility] Work Phone: [facility] 4[facility] Work Phone: 12-29-2020 10:57-0400 Body mass index (BMI) [Ratio] 26.42 kg/m2 Jelani Frey [facility] Work Phone: [facility] 4[address] Work Phone: 12-29-2020 10:57-0400 Body surface area Derived from formula 2.2 m2 Jelani Lucero Work Phone: [facility] Work Phone: 12-29-2020 10:57-0400 Body temperature 96.7 [degF] Jelani Lucero Work Phone: [facility] Work Phone: 12-29-2020 10:57-0400 Body weight 93.35 kg Jelani Lucero Work Phone: [facility] Work Phone: 09-01-2020 15:27-0500 BMI (Body Mass Index) 25.68 kg/m2 Erick Rezaee [facility] 4[facility] Work Phone: 09-01-2020 15:27-0500 Body Temperature 97.6 [degF] Erick Rezaee [facility] 4100 Work Phone: 09-01-2020 15:27-0500 Body weight 90.72 kg Erick Rezaee [facility] Work Phone: 09-01-2020 15:27-0500 BSA (Body Surface Area) 2.17 m2 Erick Rezaee [facility] Work Phone: 09-01-2020 15:27-0500 Height 187.96 cm Erick Rezaee [facility] Work Phone: 09-01-2020 15:27-0500 Respiratory Rate 18 /min Erick Rezaee [facility] 4100 Work Phone: Encounters Encounter Date Encounter Type Care Provider Facility Start: 03-07-[address] Erick Lester Facility:[id number] Start: 03-07-2023 Office outpatient vi sit 15 minutes Jelani A Nic Work Phone: LI-Lmfyteqzvbxwej-Dsjpc in [facility] 4100 Work Phone: Start: 08-23-2022 Office outpatient vi sit 15 minutes Jelani A Nic Work Phone: FH-Kdefxssslikoai-Uqlpj an Work Phone: Start: 08-23-2022 Patient encounter procedure Jelani A Nic Work Phone: FE-Maxppsmalzwmlc-Fjaep in [facility] 4100 Work Phone: Start: 08-23-[address] Erick Lester Facility:[id number] Start: 07-23-2022 Letter encounter Swapna weathers Start: 05-10-[address] Erick Lester Facility:[id number] Start: 05-10-2022 Office outpatient vi sit 15 minutes Jelani A Nic Work Phone: [facility]-Wyppkveauqyhkb-Srcpq in [facility] 4100 Work Phone: Start: 02-21-2022 End: 02-21-2022 Subsequent hospital visit by physician Julio Ventura MD Work Phone: Ambulatory Surgery Procedures Date Procedure Procedure Detail Performing Clinician Start: 02-21-2022 Colonoscopy flx dx w /collj spec when pfrmd Amanda Alamo APRN.ASBESTOS SIDING INSTALLER Work Phone: Start: 02-21-2022 Colonoscopy Julio coreas MD Work Phone: History of Oral Surg karthik Tooth Extraction Tennille Tooth Erick Trevon History of Shoulder Repair R od Rezariver Plan of Treatment Date Care Activity Detail Author Start: 08-22-2024 Tetanus vaccination Tetanus (Td or Tdap) Booster [facility] Start: 08-22-2024 Urine microalbumin profile DTAP,TDAP,TD (2 - Td or Tdap) [facility] Start: 09-05-2023 FUV, Provider: Erick Lester, Status: Pen, Time: 11:45 AM FUV, Provider: Erick Lester, Status: Pen, Time: 11:45 AM [facility] Work Phone: Start: 02-21-2023 Colonoscopy COLONOSCOPY [facility] Start: 02-21-2023 COLORECTAL CANCER SCREENING COLORECTAL CANCER SCREENING [facility] Start: 02-21-2023 FUV, Provider: Erick Lester, Status: Pen, Time: 11:15 AM FUV, Provider: Erick Lester, Status: Pen, Time: 11:15 AM IY-[facility]xefoqjrtedbnn[facility] 4100 Work Phone: Start: 08-16-2022 FUV, Provider: Erick Lester, Status: Pen, Time: 11:45 AM FUV, Provider: Erick Lester, Status: Pen, Time: 11:45 AM BF[facility]Btttldloorjkqy[facility] 4[facility] Work Phone: Start: 05-10-2022 FUV, Provider: Erick Lester, Status: Pen, Time: 11:45 AM FUV, Provider: Erick Lester, Status: Pen, Time: 11:45 AM RS[facility]Qigjrtnvsvivjw[facility] 4[facility] Work Phone: Start: 04-13-2022 Influenza vaccination Influenza Vaccine (#1) [facility] Start: 03-14-2022 Influenza vaccination INFLUENZA (#1) [facility] Start: 10-26-2021 FUV, Provider: Erick Lester, Status: Pen, Time: 10:45 AM FUV, Provider: Erick Lester, Status: Pen, Time: 10:45 AM OC-Ycmwodzppygruu[facility] 4100 Work Phone: Start: 09-28-2021 COVID-19 VACCINE (3 - Booster for Samuel series) COVID-19 VACCINE (3 - Booster for Samuel series) [facility] Start: 04-27-2021 FUV, Provider: Erick Lester, Status: Pen, Time: 10:45 AM FUV, Provider: Erick Lester, Status: Pen, Time: 10:45 AM TV-Njvxopkfwijqlh-[facility]gen[facility] 6746 Work Phone: Start: 11-27-2020 COVID-19 Vaccine (2 - Booster for Samuel series) COVID-19 Vaccine (2 - Booster for Samuel series) [facility] Start: 08-24-2019 LIPID SCREEN LIPID SCREEN [facility] Start: 08-24-2019 PROSTATE CANCER SCREENING DISCUSSION PROSTATE CANCER SCREENING DISCUSSION [facility] Start: 08-24-2017 DIABETES SCREEN DIABETES SCREEN [facility] Start: 07-14-2013 PNEUMOCOCCAL (2 - PCV) PNEUMOCOCCAL (2 - PCV) [facility] Start: 2012 Measurement of occult blood in single stool specimen [facility] Start: 2012 Screening for malignant neoplasm of colon CRC [facility] Start: 2012 Shingles (RZV) Vaccine (1 of 2) Shingles (RZV) Vaccine (1 of 2) [facility] Start: 2012 SHINGRIX VACCINE (1 of 2) SHINGRIX VACCINE (1 of 2) [facility] Start: 2007 COLOGUARD (FIT-DNA) COLOGUARD (FIT-DNA) [facility] Start: [address] COLONOGRAPHY [facility] Start: 2007 FECAL OCCULT BLOOD FECAL OCCULT BLOOD [facility] Start: 2007 SIGMOIDOSCOPY SIGMOIDOSCOPY [facility] Start: 1997 Lipid panel [facility] Start: 1980 ANNUAL PCP TEAM CHRONIC DISEASE VISIT ANNUAL PCP TEAM CHRONIC DISEASE VISIT [facility] Start: 1980 HEPATITIS C SCREENING HEPATITIS C SCREENING [facility] Start: 1980 Hepatitis C screening Hepatitis C Antibody [facility] Start: 1980 HIV SCREENING HIV SCREENING [facility] Start: 1980 SPIROMETRY SPIROMETRY [facility] Start: 1977 HIV screening HIV Test [facility] Start: 1974 Adult depression screening assessment DEPRESSION SCREENING [facility] Start: 1962 Screening for malignant neoplasm of colon Colonoscopy [facility] Immunizations Immunization Date Immunization Notes Care Provider Samantha sylvester 10-02-2020 Samuel SARS-COV-2 (COVID-19) vaccine, vector non-replicating, recombinant spike protein-Ad26, preservative free, 0.5 mL (FCA=133) [facility] 09-20-2016 hepatitis A and hepatitis B vaccine [facility] 08-19-2016 hepatitis A and hepatitis B vaccine Julio Ventura MD Work Phone: [facility] 08-19-2016 measles, mumps and rubella virus vaccine Julio Ventura MD Work Phone: [facility] 08-19-2016 typhoid vaccine, parenteral, other than acetone-killed, dried Julio Ventura MD Work Phone: [facility] 08-19-2016 typhoid capsular polysaccharide vaccine [facility] 08-19-2016 yellow fever vaccine Julio Ventura MD Work Phone: [facility] 08-22-2014 tetanus toxoid, redu anamika diphtheria toxoid, and acellular pertussis vaccine, adsorbed Julio Ventura MD Work Phone: [facility] 07-14-2012 pneumococcal polysaccharide vaccine, 23 valent Julio Ventura MD Work Phone: [facility] Work Phone: Payers Date Payer Category Payer Unknown 2017 Private Health Insurance [id number] 2017 Private Health Insurance [employer] - PPO/POS C[employer] OPEN ACCESS [id number] 2017-Present [address] [place] [id number] PPO [id number] 1962 Unknown [id number] 1962 Unknown [id number] 1962 Unknown [id number] 1962 Unknown [id number] Unknown [id number] Social History Date Type Detail Facility Assertion Tobacco smoking consumption unknown (finding) HW-Pjatjfhhkihxhu-Muq[facility] [place] [address] Work Phone: Start: 02-21-2022 Non-smoker Non-smoker MG-Otolary ngology-Chagr in [facility] 4100 Work Phone: Start: 12-11-2017 End: 02-21-2022 Tobacco smoking status NHIS Never smoked tobacco [facility] Start: 12-11-2017 End: 02-21-2022 Tobacco use and exposure Former smokeless tobacco user [facility] End: 07-14-1986 History of tobacco use Snuff User [facility] Start: 12-24-2017 End: 02-21-2022 Alcohol intake Current drinker of alcohol (finding) [facility] Start: 1960 Sex Assigned At Not on file [facility] Start: 02-11-2022 End: 02-21-2022 Exposure to SARS-CoV-2 (event) Not sure [facility] Work Phone: Start: 09-22-2017 Alcohol Comment social [facility] Functional Status Date Assessment Result Facility NEGATED: Highlighted row Functional performance Functional status health issues are not documented Disease CY-Ensieeizllpcuj-O [facility] 45[address] Work Phone: Mental Status Date Assessment Result Facility NEGATED: Highlighted row Cognitive function [Interpretation] Cognitive status health issues are not documented Disease ES-Upxurfabobagij-L [facility] 4500 Work Phone: Clinical Notes 12-30-2015 to 02-21-2022 Alicia Willis RN - 02/21/2022 12:28 PM Nick Willis RN - 02/21/2022 12:22 PM Zan Ventura MD - 02/21/2022 12:00 PM EDT Note Date & Type Note Facility 02-21-2022 Note HNO ID: [id number] Author: Alicia Willis RN Service: ? Author Type: Registered Nurse Type: Nursing Progress Note Filed: 02/21/2022 12:30 PM Note Text: Noted patient is passing air rectally, resting comfortably, eyes closed. [facility] 02-21-2022 Nurse Note Noted patient is passing air rectally, resting comfortably, eyes closed. Arrived in phase II via cart, left lateral position, eyes closed, responds to verbal stimuli, abdomen is distended, soft, patient reports it does feel a 'little crampy , skin warm and dry, respirations regular and unlabored, encouraged to allow air to pass, resting comfortably. documented in this encounter [facility] 02-21-2022 History and physical note Abby Arias PHD 61 year old Chief Complaint: Rectal Bleeding History of Present Illness: Onset: within last week, had discomfort and then bleeding bright red Lumps/lesions near the anus: yes, on and off for at least year. Tissue/hemorrhoid prolapsing from anus: yes Rectal pain: Discomfort not pain that comes and go Rectal bleeding: yes, seen with with wiping, in in toilet, not in the underwear. Rectal drainage: no Attempted txs: Sitz baths: no HC: no OTC: Preparation H, which seems to help with discomfort Dietary: Regular, Fiber no BMs: Frequency: Every morning Consistency: Formed, soft. Sometimes unformed. Laxatives/bowel regimen: none Urgency: no Accidents: no Anal Hygiene: Baby wipes, sometimes hard to clean Feeling of stool trapped/unable to push out: no Need to digitally aid in defecation: no Sitting on toilet for prolonged period of time: no Straining during BMs: no Appetite: Good Issues with urination: no Overall getting better/worse/staying the same: unable to say just within last week. Family hx of Crohns/UC/colitis: no Family of colon or rectal cancer: no Colonoscopy/flex sigmoidoscopy in the past: 10/25/2016 PAST MEDICAL HISTORY PAST MEDICAL HISTORY Diagnosis Date Allergic rhinitis due to allergen 08/22/2014 Seasonal, cats Ankle fracture, left 1988 Asthma 08/22/2014 Gastrocnemius muscle tear 2009 PAST SURGICAL HISTORY PAST SURGICAL HISTORY Procedure Laterality Date REPAIR BICEPS TENDON RUPTURE 2009 right side RHINOPLASTY W/SEPTAL REPAIR 1988 turbinectomy CURRENT MEDICATIONS Current Outpatient Medications Medication Sig Dispense Refill albuterol (PROVENTIL) 2.5 mg /3 mL (0.083 %) nebulizer solution Use 3 mL via nebulizer every 4 hours as needed for Wheezing/Shortness of Breath. Use over 5-15minutes. 50 Vial 0 albuterol HFA (VENTOLIN HFA) 90 mcg/actuation inhaler Inhale 2 Puffs as instructed every 4 hours as needed. 1 Inhaler 6 fluticasone (FLONASE) 50 mcg/actuation nasal spray Use 2 Sprays in each nostril once daily. Rinse mouth after use. 1 Bottle 11 predniSONE (DELTASONE) 20 mg tablet 9 day taper: 3 tablets for three days: 2 tablets for three days: 1 tablet for three days 18 tablet 0 fluticasone (FLOVENT) 220 mcg/actuation inhaler Inhale 1 Puff as instructed twice daily. 1 Inhaler 3 No current facility-administered medications for this visit. ALLERGIES ALLERGIES Allergen Reactions Cats Other: See Comments asthma Seasonal Allergies Other: See Comments Congestion FAMILY HISTORY FAMILY HISTORY Problem Relation Age of Onset Prostate Cancer Father 60 Cancer Father bladder Hypertension Father Coronary Artery Disease Father Cancer Mother skin cancer SOCIAL HISTORY Social History Tobacco Use Smoking status: Never Smoker Smokeless tobacco: Former User Vaping Use Vaping Use: Never used Substance Use Topics Alcohol use: Yes Alcohol/week: 10.0 standard drinks Types: 4 Glasses of Wine (5oz) per week Drug use: No Review of Systems: A 14 point review of systems was performed. All other systems are negative, other than stated above and HPI. Physical Exam: BP 142/74 Pulse 64 Temp 36.4 C (97.5 F) Resp 18 Ht 188 cm (6' 2 ) Wt 94.3 kg (208 lb) SpO2 99% BMI 26.71 kg/m General Appearance: Well appearing, alert, in no acute distress, well-hydrated, well nourished. Abdomen: soft non-distended Rectal: In the left lateral position, buttocks gently effaced, perianal skin without lesion(s) and skin changes. External hemorrhoids are moderately small in size and are acutely thrombosed. It appears that thrombosed hemorrhoid has been resolving through out week. No indication for I&D of thrombosed hemorrhoid Fissure/abscess/fistula/lesion: absent, position: N/A. MATT: Paradox: No Squeeze: Increased Resting tone: Increased Masses/lesions: No Rectocele: No Rectal intussusception: No Rectal prolapse: No Prostate: normal Anoscopy: Anoscope inserted with minimal discomfort. Mucosa is negative for inflammation and/or lesion(s). Internal hemorrhoids are moderately large in size, largest hemorrhoidal group(s) are left lateral. Anoscopy well tolerated. Small polyp seen near dentate line, due to patient discomfort of scope no biopsy able to be done. Laundry Folder present: Yes Assessment Assessment and Plan: Abby Arias PHD is a 61 year old male who is here for rectal bleeding that started within last week. Patient on exam has resolving thrombosed external hemorrhoid. Some more clot was expressed in visit today, no procedure needed to be done. Patient does have history of rectal polyp that was not biopsied at previous colonoscopy. Will order another scope for biopsy of polyp region. Patient will for thrombosed external hemorrhoid do warm sitz baths twice a day as well as ensure not sitting long periods of time on the toilet or straining with bowel movements. He will use preparation H as needed for discomfort. Amanda Alamo APRN.CNP Colorectal Surgery I spent a total of 35 minutes on the date of the service which included preparing to see the patient, [id number] patient care, completing clinical documentation, obtaining and/or reviewing separately obtained history, performing a medically appropriate examination, counseling and educating the patient/family/caregiver, ordering medications, tests, or procedures and communicating results to the patient/family/caregiver. Electronically signed by Amanda Alamo APRN.CNP UPDATED HISTORY AND PHYSICAL EXAMINATION SERVICE DATE: 02/21/2022 SERVICE TIME: 11:48 AM PHYSICAL EXAM MUST BE COMPLETED ON ADMISSION The History and Physical (completed in the past 30 days) has been reviewed and the patient has been examined. The contents accurately reflect the patient's condition with the following additions or revisions since the H&P was completed. Examination indicates no changes. This H&P can be found in the attached. SIGNATURE: Julio Ventura III, MD PATIENT NAME: Abby Arias PHD DATE: February 21, 2022 TIME: 11:48 AM documented in this encounter [facility] 03-07-2018 History of Present illness Narrative HPI:57 year old male who noted a soft tissue mass of his right hard palate approx 5 years ago. Denies pain, bleeding, dysphagia, or any other symptoms. Denies drastic changes in size over 5 years. This was biopsied by a dentist and reportedly came back benign. 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 He is here for a second opinion regarding the management of this lesion03/20/2018Patient here for follow-up discussion after reviewing in detail on the phone with him the recommendations of tumor board for standard formal oncologic incision versus observation at patient's discretionHe understands at this point he has had at best an excisional biopsy with what appears to be mucosal flaps and preservation of the underlying bone in the sense enucleationHe understands these are close and/or positive marginsHe understands his of malignancy with bony remodeling seen on the CT scan prior to his original procedureWe discussed that this is a visible area and therefore could be observed and operate based on any potential recurrence in the futureHe understands that the low grade lesion and can be observed if he feels comfortable with thisWe also discussed that had been known this were cancer the procedure was performed would would've included the underlying bone and overlying mucosaThis would leave a defect into the nasal and maxillary cavity which would either be operated or could be surgically closedWe have had him discuss this with both types of patients those of a have obturator as well as one that had a flapHere for further discussions with his epdpxka77/16/18here for follow updoing well but is nervous about the prospect of surgeryunderstand in detail the options and npdpjeeap25/24/2018Here for follow-up visit doing well07/24/18Patient here for follow-up visit doing much betterOverall feeling betterTrach is out arm is with better motionMarch 2018Overall is doing well arm is doing well eating speaking swallowing and a reasonable leveldoing well overallgood functionAugust 2018Overall patient is doing well continues to make progress in all aspects eating speaking and swallowing reasonably wellDecember 2018Patient is doing well, 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 No purulent foul drainage of mouth or from nose.10/22/2019doing well overallsome allergy symptomsright facial swelling has been noticed by his but it is soft on palpationHis obturator is fitting nicely there is no bleeding or painAs far as a nasal congestive symptoms he does have allergies and he uses Claritin periodically and utilizes salineHe does have Flonase but he does not use it regularlyNo bloody noses or bleeding02/25/2020doing wellno issuesprosthetic is not as helpful eating b/c food gets stuck behind it creating more work06/23/2020doing wellno earing issuesno problemseating speaking and swallowing okno bleedingdoesn t use the pros to eat09/01/20doing wellmaxillectomy/flap 06/30no issuesnasal issues/congestionno bleeding12/29/20no symptomsdoing wellsome stable congestion with allergies this springuses singulair and allegrano nosebleeds but some blood 3 or 4 times, not lately, left side04/27/21doing welleating ok11/02/21doing betteruses his prosthesis more regularsome nasal congestionno .28.22Patient is doing okayStill with some nasal congestion but overall doing well08/23/22Patient presents for a follow up visit. No specific ENT complaints today. He is doing well. Weight stable with good appetite. No fever, chills, night sweats, epistaxis, rhinorrhea, nasal obstruction, facial pain/pressure, changes in smell, post nasal drip, dysphagia, odynophagia, sore throat, globus, hemoptysis, or hematemesis.Staff noteAbove resident note reviewed and confirmedI saw and examined the patient. I personally obtained the aguilar and critical portions of the history and physical exam or was physically present for the aguilar and critical portions performed by the resident/fellow. I reviewed the resident/fellow's documentation and discussed the patient with the resident/fellow. I agree with the resident/fellow's medical decision making as documented in the resident's note.03/07/23[address] get nasal congestion when outside cutting grassno sprays in the summer, yes in the spring and fallno nosebleedstakes allegraeating ok MF-Bivuasdbdakayf-CqyqxtySan[facility] Work Phone: 08-30-2017 History of Present illness Narrative HPI:57 year old male who noted a soft tissue mass of his right hard palate approx 5 years ago. Denies pain, bleeding, dysphagia, or any other symptoms. Denies drastic changes in size over 5 years. This was biopsied by a dentist and reportedly came back benign. 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 He is here for a second opinion regarding the management of this lesion03/20/2018Patient here for follow-up discussion after reviewing in detail on the phone with him the recommendations of tumor board for standard formal oncologic incision versus observation at patient's discretionHe understands at this point he has had at best an excisional biopsy with what appears to be mucosal flaps and preservation of the underlying bone in the sense enucleationHe understands these are close and/or positive marginsHe understands his of malignancy with bony remodeling seen on the CT scan prior to his original procedureWe discussed that this is a visible area and therefore could be observed and operate based on any potential recurrence in the futureHe understands that the low grade lesion and can be observed if he feels comfortable with thisWe also discussed that had been known this were cancer the procedure was performed would would've included the underlying bone and overlying mucosaThis would leave a defect into the nasal and maxillary cavity which would either be operated or could be surgically closedWe have had him discuss this with both types of patients those of a have obturator as well as one that had a flapHere for further discussions with his pypytxt02/16/18here for follow updoing well but is nervous about the prospect of surgeryunderstand in detail the options and lhfiigkxi59/24/2018Here for follow-up visit doing well07/24/18Patient here for follow-up visit doing much betterOverall feeling betterTrach is out arm is with better motionMarch 2018Overall is doing well arm is doing well eating speaking swallowing and a reasonable leveldoing well overallgood functionAugust 2018Overall patient is doing well continues to make progress in all aspects eating speaking and swallowing reasonably wellDecember 2018Patient is doing well, 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 No purulent foul drainage of mouth or from nose.10/22/2019doing well overallsome allergy symptomsright facial swelling has been noticed by his but it is soft on palpationHis obturator is fitting nicely there is no bleeding or painAs far as a nasal congestive symptoms he does have allergies and he uses Claritin periodically and utilizes salineHe does have Flonase but he does not use it regularlyNo bloody noses or bleeding02/25/2020doing wellno issuesprosthetic is not as helpful eating b/c food gets stuck behind it creating more work06/23/2020doing wellno earing issuesno problemseating speaking and swallowing okno bleedingdoesn t use the pros to eat09/01/20doing wellmaxillectomy/flap 06/30no issuesnasal issues/congestionno bleeding12/29/20no symptomsdoing wellsome stable congestion with allergies this springuses singulair and allegrano nosebleeds but some blood 3 or 4 times, not lately, left side04/27/21doing welleating ok11/02/21doing betteruses his prosthesis more regularsome nasal congestionno [id number]..22Patient is doing okayStill with some nasal congestion but overall doing well08/23/22Patient presents for a follow up visit. No specific ENT complaints today. He is doing well. Weight stable with good appetite. No fever, chills, night sweats, epistaxis, rhinorrhea, nasal obstruction, facial pain/pressure, changes in smell, post nasal drip, dysphagia, odynophagia, sore throat, globus, hemoptysis, or hematemesis.Staff noteAbove resident note reviewed and confirmedI saw and examined the patient. I personally obtained the aguilar and critical portions of the history and physical exam or was physically present for the aguilar and critical portions performed by the resident/fellow. I reviewed the resident/fellow's documentation and discussed the patient with the resident/fellow. I agree with the resident/fellow's medical decision making as documented in the resident's note. KF-Vsurnilltpavis-Bxlxhpi Work Phone: 08-24-2017 History of Present illness Narrative HPI:57 year old male who noted a soft tissue mass of his right hard palate approx 5 years ago. Denies pain, bleeding, dysphagia, or any other symptoms. Denies drastic changes in size over 5 years. This was biopsied by a dentist and reportedly came back benign. 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 He is here for a second opinion regarding the management of this lesion03/20/2018Patient here for follow-up discussion after reviewing in detail on the phone with him the recommendations of tumor board for standard formal oncologic incision versus observation at patient's discretionHe understands at this point he has had at best an excisional biopsy with what appears to be mucosal flaps and preservation of the underlying bone in the sense enucleationHe understands these are close and/or positive marginsHe understands his of malignancy with bony remodeling seen on the CT scan prior to his original procedureWe discussed that this is a visible area and therefore could be observed and operate based on any potential recurrence in the futureHe understands that the low grade lesion and can be observed if he feels comfortable with thisWe also discussed that had been known this were cancer the procedure was performed would would've included the underlying bone and overlying mucosaThis would leave a defect into the nasal and maxillary cavity which would either be operated or could be surgically closedWe have had him discuss this with both types of patients those of a have obturator as well as one that had a flapHere for further discussions with his orlqkwr01/16/18here for follow updoing well but is nervous about the prospect of surgeryunderstand in detail the options and nuuhrbqol53/24/2018Here for follow-up visit doing well07/24/18Patient here for follow-up visit doing much betterOverall feeling betterTrach is out arm is with better motionMarch 2018Overall is doing well arm is doing well eating speaking swallowing and a reasonable leveldoing well overallgood functionAugust 2018Overall patient is doing well continues to make progress in all aspects eating speaking and swallowing reasonably wellDecember 2018Patient is doing well, 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 No purulent foul drainage of mouth or from nose.10/22/2019doing well overallsome allergy symptomsright facial swelling has been noticed by his but it is soft on palpationHis obturator is fitting nicely there is no bleeding or painAs far as a nasal congestive symptoms he does have allergies and he uses Claritin periodically and utilizes salineHe does have Flonase but he does not use it regularlyNo bloody noses or bleeding02/25/2020doing wellno issuesprosthetic is not as helpful eating b/c food gets stuck behind it creating more work06/23/2020doing wellno earing issuesno problemseating speaking and swallowing okno bleedingdoesn t use the pros to eat09/01/20doing wellmaxillectomy/flap 06/30no issuesnasal issues/congestionno bleeding12/29/20no symptomsdoing wellsome stable congestion with allergies this springuses singulair and allegrano nosebleeds but some blood 3 or 4 times, not lately, left side04/27/21doing welleating ok4/22/22doing betteruses his prosthesis more regularsome nasal congestionno [id number] is doing okayStill with some nasal congestion but overall doing well08/23/22Patient presents for a follow up visit. No specific ENT complaints today. He is doing well. Weight stable with good appetite. No fever, chills, night sweats, epistaxis, rhinorrhea, nasal obstruction, facial pain/pressure, changes in smell, post nasal drip, dysphagia, odynophagia, sore throat, globus, hemoptysis, or hematemesis. QY-Idqvxhfyyifkup-IfsxbpySanford [facility] Work Phone: 05-13-2017 History of Present illness Narrative HPI:57 year old male who noted a soft tissue mass of his right hard palate approx 5 years ago. Denies pain, bleeding, dysphagia, or any other symptoms. Denies drastic changes in size over 5 years. This was biopsied by a dentist and reportedly came back benign. 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 He is here for a second opinion regarding the management of this lesion03/20/2018Patient here for follow-up discussion after reviewing in detail on the phone with him the recommendations of tumor board for standard formal oncologic incision versus observation at patient's discretionHe understands at this point he has had at best an excisional biopsy with what appears to be mucosal flaps and preservation of the underlying bone in the sense enucleationHe understands these are close and/or positive marginsHe understands his of malignancy with bony remodeling seen on the CT scan prior to his original procedureWe discussed that this is a visible area and therefore could be observed and operate based on any potential recurrence in the futureHe understands that the low grade lesion and can be observed if he feels comfortable with thisWe also discussed that had been known this were cancer the procedure was performed would would've included the underlying bone and overlying mucosaThis would leave a defect into the nasal and maxillary cavity which would either be operated or could be surgically closedWe have had him discuss this with both types of patients those of a have obturator as well as one that had a flapHere for further discussions with his /16/18here for follow updoing well but is nervous about the prospect of surgeryunderstand in detail the options and wywclgaux07/24/2018Here for follow-up visit doing well07/24/18Patient here for follow-up visit doing much betterOverall feeling betterTrach is out arm is with better motionMarch 2018Overall is doing well arm is doing well eating speaking swallowing and a reasonable leveldoing well overallgood functionAugust 2018Overall patient is doing well continues to make progress in all aspects eating speaking and swallowing reasonably wellDecember 2018Patient is doing well, 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 No purulent foul drainage of mouth or from nose.10/22/2019doing well overallsome allergy symptomsright facial swelling has been noticed by his but it is soft on palpationHis obturator is fitting nicely there is no bleeding or painAs far as a nasal congestive symptoms he does have allergies and he uses Claritin periodically and utilizes salineHe does have Flonase but he does not use it regularlyNo bloody noses or bleeding02/25/2020doing wellno issuesprosthetic is not as helpful eating b/c food gets stuck behind it creating more work06/23/2020doing wellno earing issuesno problemseating speaking and swallowing okno bleedingdoesn t use the pros to eat09/01/20doing wellmaxillectomy/flap 06/30no issuesnasal issues/congestionno bleeding12/29/20no symptomsdoing wellsome stable congestion with allergies this springuses singulair and allegrano nosebleeds but some blood 3 or 4 times, not lately, left side04/27/21doing welleating ok11/02/21doing betteruses his prosthesis more regularsome nasal congestionno [id number] is doing okayStill with some nasal congestion but overall doing well MA-Ecyxwatnxjhxyb-SjsokrdSanford [facility] Work Phone: 11-02-2016 History of Present illness Narrative HPI:57 year old male who noted a soft tissue mass of his right hard palate approx 5 years ago. Denies pain, bleeding, dysphagia, or any other symptoms. Denies drastic changes in size over 5 years. This was biopsied by a dentist and reportedly came back benign. 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 He is here for a second opinion regarding the management of this lesion03/20/2018Patient here for follow-up discussion after reviewing in detail on the phone with him the recommendations of tumor board for standard formal oncologic incision versus observation at patient's discretionHe understands at this point he has had at best an excisional biopsy with what appears to be mucosal flaps and preservation of the underlying bone in the sense enucleationHe understands these are close and/or positive marginsHe understands his of malignancy with bony remodeling seen on the CT scan prior to his original procedureWe discussed that this is a visible area and therefore could be observed and operate based on any potential recurrence in the futureHe understands that the low grade lesion and can be observed if he feels comfortable with thisWe also discussed that had been known this were cancer the procedure was performed would would've included the underlying bone and overlying mucosaThis would leave a defect into the nasal and maxillary cavity which would either be operated or could be surgically closedWe have had him discuss this with both types of patients those of a have obturator as well as one that had a flapHere for further discussions with his /16/18here for follow updoing well but is nervous about the prospect of surgeryunderstand in detail the options and vnsusrwan64/24/2018Here for follow-up visit doing well07/24/18Patient here for follow-up visit doing much betterOverall feeling betterTrach is out arm is with better motionMarch 2018Overall is doing well arm is doing well eating speaking swallowing and a reasonable leveldoing well overallgood functionAugust 2018Overall patient is doing well continues to make progress in all aspects eating speaking and swallowing reasonably wellDecembjames 2018Patient is doing well, 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 No purulent foul drainage of mouth or from nose.10/22/2019doing well overallsome allergy symptomsright facial swelling has been noticed by his but it is soft on palpationHis obturator is fitting nicely there is no bleeding or painAs far as a nasal congestive symptoms he does have allergies and he uses Claritin periodically and utilizes salineHe does have Flonase but he does not use it regularlyNo bloody noses or bleeding02/25/2020doing wellno issuesprosthetic is not as helpful eating b/c food gets stuck behind it creating more work06/23/2020doing wellno earing issuesno problemseating speaking and swallowing okno bleedingdoesn t use the pros to eat09/01/20doing wellmaxillectomy/flap 06/30no issuesnasal issues/congestionno bleeding12/29/20no symptomsdoing wellsome stable congestion with allergies this springuses singulair and allegrano nosebleeds but some blood 3 or 4 times, not lately, left side04/27/21doing welleating ok11/02/21doing betteruses his prosthesis more regularsome nasal congestionno bleeding FA-Arnxgzwripgchw-JwvziwiSanford [facility] [address] Work Phone: 04-27-2016 History of Present illness Narrative HPI:57 year old male who noted a soft tissue mass of his right hard palate approx 5 years ago. Denies pain, bleeding, dysphagia, or any other symptoms. Denies drastic changes in size over 5 years. This was biopsied by a dentist and reportedly came back benign. 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 He is here for a second opinion regarding the management of this lesion03/20/2018Patient here for follow-up discussion after reviewing in detail on the phone with him the recommendations of tumor board for standard formal oncologic incision versus observation at patient's discretionHe understands at this point he has had at best an excisional biopsy with what appears to be mucosal flaps and preservation of the underlying bone in the sense enucleationHe understands these are close and/or positive marginsHe understands his of malignancy with bony remodeling seen on the CT scan prior to his original procedureWe discussed that this is a visible area and therefore could be observed and operate based on any potential recurrence in the futureHe understands that the low grade lesion and can be observed if he feels comfortable with thisWe also discussed that had been known this were cancer the procedure was performed would would've included the underlying bone and overlying mucosaThis would leave a defect into the nasal and maxillary cavity which would either be operated or could be surgically closedWe have had him discuss this with both types of patients those of a have obturator as well as one that had a flapHere for further discussions with his yfsznli19/16/18here for follow updoing well but is nervous about the prospect of surgeryunderstand in detail the options and ilvenxyeq55/24/2018Here for follow-up visit doing well07/24/18Patient here for follow-up visit doing much betterOverall feeling betterTrach is out arm is with better motionMarch 2018Overall is doing well arm is doing well eating speaking swallowing and a reasonable leveldoing well overallgood functionAugust 2018Overall patient is doing well continues to make progress in all aspects eating speaking and swallowing reasonably wellDecemb 2018Patient is doing well, 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 No purulent foul drainage of mouth or from nose.10/22/2019doing well overallsome allergy symptomsright facial swelling has been noticed by his but it is soft on palpationHis obturator is fitting nicely there is no bleeding or painAs far as a nasal congestive symptoms he does have allergies and he uses Claritin periodically and utilizes salineHe does have Flonase but he does not use it regularlyNo bloody noses or bleeding02/25/2020doing wellno issuesprosthetic is not as helpful eating b/c food gets stuck behind it creating more work06/23/2020doing wellno earing issuesno problemseating speaking and swallowing okno bleedingdoesn t use the pros to eat09/01/20doing wellmaxillectomy/flap 06/30no issuesnasal issues/congestionno bleeding12/29/20no symptomsdoing wellsome stable congestion with allergies this springuses singulair and allegrano nosebleeds but some blood 3 or 4 times, not lately, left side04/27/21doing welleating ok VM-Paqsgnaibibemt-[facility]ozpwqgSan[facility] Work Phone: 12-30-2015 History of Present illness Narrative HPI:57 year old male who noted a soft tissue mass of his right hard palate approx 5 years ago. Denies pain, bleeding, dysphagia, or any other symptoms. Denies drastic changes in size over 5 years. This was biopsied by a dentist and reportedly came back benign. 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 He is here for a second opinion regarding the management of this lesion03/20/2018Patient here for follow-up discussion after reviewing in detail on the phone with him the recommendations of tumor board for standard formal oncologic incision versus observation at patient's discretionHe understands at this point he has had at best an excisional biopsy with what appears to be mucosal flaps and preservation of the underlying bone in the sense enucleationHe understands these are close and/or positive marginsHe understands his of malignancy with bony remodeling seen on the CT scan prior to his original procedureWe discussed that this is a visible area and therefore could be observed and operate based on any potential recurrence in the futureHe understands that the low grade lesion and can be observed if he feels comfortable with thisWe also discussed that had been known this were cancer the procedure was performed would would've included the underlying bone and overlying mucosaThis would leave a defect into the nasal and maxillary cavity which would either be operated or could be surgically closedWe have had him discuss this with both types of patients those of a have obturator as well as one that had a flapHere for further discussions with his ybityac57/16/18here for follow updoing well but is nervous about the prospect of surgeryunderstand in detail the options and ftwcanxbe12/24/2018Here for follow-up visit doing well07/24/18Patient here for follow-up visit doing much betterOverall feeling betterTrach is out arm is with better motionMarch 2018Overall is doing well arm is doing well eating speaking swallowing and a reasonable leveldoing well overallgood functionAugust 2018Overall patient is doing well continues to make progress in all aspects eating speaking and swallowing reasonably wellDecember 2018Patient is doing well, 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 No purulent foul drainage of mouth or from nose.10/22/2019doing well overallsome allergy symptomsright facial swelling has been noticed by his but it is soft on palpationHis obturator is fitting nicely there is no bleeding or painAs far as a nasal congestive symptoms he does have allergies and he uses Claritin periodically and utilizes salineHe does have Flonase but he does not use it regularlyNo bloody noses or bleeding02/25/2020doing wellno issuesprosthetic is not as helpful eating b/c food gets stuck behind it creating more work06/23/2020doing wellno earing issuesno problemseating speaking and swallowing okno bleedingdoesn t use the pros to eat09/01/20doing wellmaxillectomy/flap 06/30no issuesnasal issues/congestionno bleeding12/29/20no symptomsdoing wellsome stable congestion with allergies this springuses singulair and allegrano nosebleeds but some blood 3 or 4 times, not lately, left side UJ-Sxjzjjwhznbpot-MtwzoybSan[facility] [address] Work Phone: documented in this encounter [facility] for referral (narrative)* Outpatient Procedure (Routine) - Closed Specialty Diagnoses / Procedures Referred By Contari t Referred To Contact [facility] Diagnoses Rectal bleeding Rectal polyp Procedures COLONOSCOPY DIAGNOSTIC COLONOSCOPY FLX DX W/COLLJ SPEC WHEN PFRMD Amanda Alamo APRN.[employer] [address] [place] [address] [facility] [address] [place] [address] Referral ID Status Reason Start Date Expiration Date V isits Requested Visits Authorized [id number] Closed Auto-Generate d Referral 02/21/2022 01/21/2023 1 1 [facility] for visit Narrative* Outpatient Procedure (Routine) - Closed Specialty Diagnoses / Procedures Referred By Marlys t Referred To Contact [facility] Diagnoses Rectal bleeding Rectal polyp Procedures COLONOSCOPY DIAGNOSTIC COLONOSCOPY FLX DX W/COLLJ SPEC WHEN Amanda Burns APRN.CNP [address] [place] [address] [address] Referral ID Status Reason Start Date Expiration Date V isits Requested Visits Authorized [id number] Closed Auto-Generate d Referral 02/21/2022 01/21/2023 1 1 [facility] Family History No Family History Records Found Mother Name Dates Details Family history of arthritis( V17.7, Z82.61) Status:Active Father Name Dates Details Family history of malignant neoplasm of prostate(V16.42, Z80.42) Status:Active Family history of malignant neoplasm of urinary bladder(V16.52, Z80.52) Status:Active Family history of hypertensi on(V17.49, Z82.49) Status:Active Family history of cardiac di sorder(V17.49, Z82.49) Status:Active Mother Name Dates Details Family history of arthritis( V17.7, Z82.61) Status:Active Father Name Dates Details Family history of malignant neoplasm of prostate(V16.42, Z80.42) Status:Active Family history of malignant neoplasm of urinary bladder(V16.52, Z80.52) Status:Active Family history of hypertensi on(V17.49, Z82.49) Status:Active Family history of cardiac di sorder(V17.49, Z82.49) Status:Active Unknown Family Member Name Dates Details Family history of malignant neoplasm of prostate: Father(V16.42, Z80.42) Status:Active Family history of malignant neoplasm of urinary bladder: Father(V16.52, Z80.52) Status:Active Family history of hypertensi on: Father(V17.49, Z82.49) Status:Active Family history of cardiac di sorder: Father(V17.49, Z82.49) Status:Active Family history of arthritis: Mother(V17.7, Z82.61) Status:Active Unknown Family Member Name Dates Details Family history of malignant neoplasm of prostate: Father(V16.42, Z80.42) Status:Active Family history of malignant neoplasm of urinary bladder: Father(V16.52, Z80.52) Status:Active Family history of hypertensi on: Father(V17.49, Z82.49) Status:Active Family history of cardiac di sorder: Father(V17.49, Z82.49) Status:Active Family history of arthritis: Mother(V17.7, Z82.61) Status:Active Unknown Family Member Name Dates Details Family history of malignant neoplasm of prostate: Father(V16.42, Z80.42) Status:Active Family history of malignant neoplasm of urinary bladder: Father(V16.52, Z80.52) Status:Active Family history of hypertensi on: Father(V17.49, Z82.49) Status:Active Family history of cardiac di sorder: Father(V17.49, Z82.49) Status:Active Family history of arthritis: Mother(V17.7, Z82.61) Status:Active Unknown Family Member Name Dates Details Family history of arthritis: Mother(V17.7, Z82.61) Status:Active Family history of cardiac di sorder: Father(V17.49, Z82.49) Status:Active Family history of hypertensi on: Father(V17.49, Z82.49) Status:Active Family history of malignant neoplasm of urinary bladder: Father(V16.52, Z80.52) Status:Active Family history of malignant neoplasm of prostate: Father(V16.42, Z80.42) Status:Active Unknown Family Member Name Dates Details Family history of malignant neoplasm of prostate: Father(V16.42, Z80.42) Status:Active Family history of malignant neoplasm of urinary bladder: Father(V16.52, Z80.52) Status:Active Family history of hypertensi on: Father(V17.49, Z82.49) Status:Active Family history of cardiac di sorder: Father(V17.49, Z82.49) Status:Active Family history of arthritis: Mother(V17.7, Z82.61) Status:Active Unknown Family Member Name Dates Details Family history of malignant neoplasm of prostate: Father(V16.42, Z80.42) Status:Active Family history of malignant neoplasm of urinary bladder: Father(V16.52, Z80.52) Status:Active Family history of hypertensi on: Father(V17.49, Z82.49) Status:Active Family history of cardiac di sorder: Father(V17.49, Z82.49) Status:Active Family history of arthritis: Mother(V17.7, Z82.61) Status:Active Unknown Family Member Name Dates Details Family history of malignant neoplasm of prostate: Father(V16.42, Z80.42) Status:Active Family history of malignant neoplasm of urinary bladder: Father(V16.52, Z80.52) Status:Active Family history of hypertensi on: Father(V17.49, Z82.49) Status:Active Family history of cardiac di sorder: Father(V17.49, Z82.49) Status:Active Family history of arthritis: Mother(V17.7, Z82.61) Status:Active Chief Complaint follow upfollow upMr. Arias reports to clinic for follow up appointment with Dr. Cage upfollow upfollow upfollow up Summary Purpose Advance Directives No Advanced Directives Records FoundNo Advanced Directives Records FoundNo Advanced Directives Records FoundNo Advanced Directives Records Found Medications Administered Section Inactive Administered Medications - up to 3 most recent administrations Medication Order MAR Action Action Date Dose Rate Site diphenhydrAMINE 12.5-50 mg injection (BENADRYL) 12.5-50 mg, INTRAVENOUS, DIRECTED, Starting on Michelle 02/21/22 at 1200, Until Michelle 02/21/22 at 1559, DOSING DIRECTED BY PHYSICIAN FOR PROCEDURAL SEDATION ONLY, Intraprocedure Given 02/21/2022 11:59 AM EDT 50 mg fentaNYL 50 mcg/mL 25-100 mcg injection (SUBLIMAZE) 25-100 mcg, INTRAVENOUS, DIRECTED, Starting on Michelle 02/21/22 at 1200, Until Michelle 02/21/22 at 1559, DOSING DIRECTED BY PHYSICIAN FOR PROCEDURAL SEDATION ONLY, Intraprocedure Given 02/21/2022 12:05 PM EDT 50 mcg Additional Source Comments (unrecognized sect ion and content) No Status Records FoundNo Status Records FoundNo Status Records FoundNo Status Records Found INFORMATION SOURCE (unrecogn ized section and content) DATE CREATED AUTHOR AUTHOR'S ORGANIZ ATION 02/22/2022 [facility] DATE CREATED AUTHOR AUTHOR'S ORGANIZ ATION 03/08/2023 [facility] [place] DATE CREATED AUTHOR AUTHOR'S ORGANIZ ATION 03/08/2023 [employer] Comments (unrecognize d section and content) In the event this informatio n is protected by the Federal Confidentiality of Alcohol and Drug Abuse Patient Records regulations: The Federal rules restrict any use of the information to criminally investigate or prosecute any alcohol or drug abuse patient.[facility] FOR RECORDS PERTAINING TO PATIENTS WHO ARE OR HAVE BEEN ENROLLED IN A CHEMICAL DEPENDENCY/SUBSTANCEABUSE PROGRAM, SOME INFORMATION MAY BE OMITTED. This clinical summary was aggregated from multiple sources. Caution should be exercised in using it in the provision of clinical care. This summary normalizes information from multiple sources, and as a consequence, information in this document may materially change the coding, format and clinical context of patient data. In addition, data may be omitted in some cases. CLINICAL DECISIONS SHOULD BE BASED ON THE PRIMARY CLINICAL RECORDS. [employer] provides no warranty or guarantee of the accuracy or completeness of information in this document.
[2023-07-22] MEDS: Triamcinolone Acetonide 40 MG/ML Vial IM (22:48)
[2023-07-22 23:03] VITALS: BP 162/97; PULSE 58; RESP 15; O2SAT 95
[2023-07-22 23:04] VITALS: O2SAT 94
[2023-07-22 23:05] VITALS: BP 162/97; PULSE 58; RESP 15; O2SAT 95
== END 2023-07-22 23:06 | disposition home or self-care (01) ==
LOC: ED 22:35
PROVIDERS: Emergency Provider Emergency Medicine; PCP Family Medicine; Visit Provider Emergency Medicine
DX: J06.9 Acute upper respiratory infection, unspecified (principal); J45.901 Unspecified asthma with (acute) exacerbation; Z79.51 Long term (current) use of inhaled steroids
CPT/HCPCS: 71046; 96372; 99282